=== PATIENT | female | born 1970 | race African-American/Black ===

== ENCOUNTER 2021-11-16 20:18 | Emergency (ER) | payer OTHER ==
[~2021-11-16] VITALS: Ht 170.2 cm; Wt 66.0 kg
[~2021-11-16 20:18] MED LIST: ESTR5VIA4; FAMOTIDINE
[2021-11-16 20:23] VITALS: BP 118/77
[2021-11-16] MEDS ORDERED: DEXAMETHASONE 4MG TABLET PO ONE (22:30)
[2021-11-16] MEDS ORDERED: IBUPROFEN 400MG TABLET PO ONE (22:30)
[2021-11-16] MEDS ORDERED: ACETAMINOPHEN 325MG TABLET PO ONE (22:30)
[2021-11-17] MEDS ORDERED: TOPUD PO (00:21)
[2021-11-17] MEDS ORDERED: IBUP-2028 MT (00:21)
== END 2021-11-17 00:48 | disposition home or self-care (01) ==
LOC: ER 20:36
DX: J02.9 Acute pharyngitis, unspecified (principal); H92.01 Otalgia, right ear; F12.10 Cannabis abuse, uncomplicated
CPT/HCPCS: 87070; 87430; 99283; J8540